=== PATIENT | male | born 1965 | race Caucasian/White ===

== ENCOUNTER 2020-02-20 00:22 | Outpatient (CLI) | payer BC, SELFPAY ==
[2020-02-20 19:25] LABS: SARS-CoV-2 RNA PCR Negative
== END 2020-02-20 00:23 | disposition home or self-care (01) ==
LOC: ANHCOVIDDT 00:22
PROVIDERS: PCP Family Medicine; Visit Provider Internal Medicine Gastroenterology
DX: Z01.812 Encounter for preprocedural laboratory examination (principal); Z20.828 Contact with and (suspected) exposure to other viral communicable diseases
CPT/HCPCS: 87635; C9803; U0003

== ENCOUNTER 2020-02-23 01:25 | Day surgery (SDC) | payer BC, SELFPAY ==
[2020-02-17 08:49] VITALS: BMI 25.7
[2020-02-23 09:08] VITALS: BP 133/85; PULSE 90; RESP 16; TEMP 36.3; O2SAT 97; BMI 25.5
[2020-02-23] MEDS: LACTATED RINGERS 1,000 ML 150 ML IV CONT (09:19)
--- NOTE | 2020-02-23 09:31 | WPDGICN ---
Assessment and Plan Assessment and plan (1) Encounter for screening colonoscopy: Code(s): Z12.11 - Encounter for screening for malignant neoplasm of colon Status: Acute Assessment and Plan: Patient appears to be about average risk for colon polyps. Screening colonoscopy is recommended at this time because of his age. GI Consult Note Consult date/time: 02/23/20 09:31 HPI: Preet Ruby is a 54 year old male Seen in evaluation at the request Dr. Ashok Ordonez. patient presents for neoplasia screening. Current weight appetite bowel movements are normal. He denies abdominal pain he has had no bleeding. Family history noncontributory. Review of Systems Review of Systems: All systems reviewed & are unremarkable except as noted in HPI and below PMFSH Social History Social History Smoking status: Never smoker Alcohol intake: current Drinks per week: 6 Alcohol use details: BEERS Substance use: never Substance use type: does not use Living arrangements: with family Spiritual care concerns: No Meds Home Medications and Allergies Home Medications Medication Instructions Recorded Confirmed Type No Home Medications 02/17/20 02/23/20 History Allergies Allergy/AdvReac Type Severity Reaction Status Date / Time No Known Allergies Allergy Verified 02/23/20 09:06 Vital Signs Vital Signs - 24 hr 02/23/20 09:08 Temperature 97.3 F L Pulse Rate 90 Respiratory Rate 16 Blood Pressure 133/85 Pulse Oximetry 97 Exam Narrative: Exam Narrative: Physical exam reveals patient to be alert. Vital signs stable. HEENT exam unremarkable. Lungs are clear to auscultation and percussion. Heart is without murmur or extra sounds. Abdominal exam bowel sounds present soft nontender with no organomegaly. Digital external rectal exam normal.
--- NOTE | 2020-02-23 09:58 | WPDANESEPPF ---
Anes - Initial Pre Proc Eval Procedure: Operation Date: 02/23/20 10:30 Proposed Procedures p Screening Colonoscopy - Kelvin Clark MD Date/Time: 02/23/20 09:58 Surgeon: Kelvin Clark MD Pre Op Diagnosis: Neoplasm Screening Patient Data Age: 54 Gender: M Height: 6 ft 2 in Weight: 90.3 kg Last Vital Signs Temp 97.3 F L 02/23/20 09:08 Pulse 90 02/23/20 09:08 Resp 16 02/23/20 09:08 BP 133/85 02/23/20 09:08 Pulse Ox 97 02/23/20 09:08 Allergies Allergy/AdvReac Type Severity Reaction Status Date / Time No Known Allergies Allergy Verified 02/23/20 09:06 Home Medications Medication Instructions Recorded Confirmed Type No Home Medications 02/17/20 02/23/20 History Patient hx anesthesia problems: none Family hx anesthesia problems: none PMFSH Social History Social History Smoking status: Never smoker Alcohol intake: current Drinks per week: 6 Alcohol use details: BEERS Substance use: never Substance use type: does not use Living arrangements: with family Spiritual care concerns: No Anes - Eval Final PreProcedure Day of Procedure 02/23/20 09:58 Patient weight: normal Heart: regular rate and rhythm Lungs: clear to auscultation Airway: Mallampati scale class II Neurological: alert and oriented Last oral intake: >/= 8 hours ASA classification: II Emergent: no Anesthetic plan: proceed Anesthesia type and monitoring: general GIVS and standard monitoring Informed Consent: The patient's anesthetic plan and its attendant risks and benefits were discussed with the patient/family/POA. Questions were solicited and answers provided to the satisfaction of the patient/family/POA.
[2020-02-23 10:20] VITALS: BP 95/60; PULSE 77; RESP 18; O2SAT 94
[2020-02-23 10:30] VITALS: BP 105/67; PULSE 75; RESP 20; O2SAT 98
[2020-02-23 10:40] VITALS: BP 123/73; PULSE 74; RESP 18; O2SAT 97
== END 2020-02-23 10:50 | disposition home or self-care (01) ==
PROVIDERS: PCP Family Medicine; Visit Provider Internal Medicine Gastroenterology
PROC: 0DJD8ZZ Inspection of Lower Intestinal Tract, Via Natural or Artificial Opening Endoscopic (ICD-10-PCS; CPT 45378; principal; 2020-02-23 10:30)
DX: Z12.11 Encounter for screening for malignant neoplasm of colon (principal); K64.8 Other hemorrhoids
CPT/HCPCS: 45378; J2704; J7120